=== PATIENT | male | born 1990 | race Caucasian/White ===

== ENCOUNTER 2016-09-28 19:27 | Emergency (ER) | payer OTHER ==
[~2016-09-28] VITALS: Ht 167.6 cm; Wt 70.3 kg
[2016-09-28] MEDS ORDERED: IBUP-1114 PO (19:36)
[2016-09-28] MEDS ORDERED: ZYRT10CA PO (19:36)
[2016-09-28] MEDS ORDERED: diphenhydrAMINE INJ 50MG/ML VIAL (J1200) IV ONE (20:00)
[2016-09-28] MEDS ORDERED: FAMOTIDINE IV BAG 20 MG in APPROPRIATE DILUENT 1 EA IV ONE (20:00)
[2016-09-28] MEDS ORDERED: methylPREDNISolone INJ 125 MG/2 ML VIAL (J2930) IV ONE (20:00)
[2016-09-28 20:56] VITALS: BP 139/67
[2016-09-28] MEDS ORDERED: PRED20TA PO (20:56)
[2016-09-28] MEDS ORDERED: ZANT300T PO (20:57)
== END 2016-09-28 21:15 | disposition home or self-care (01) ==
LOC: M ED 21:14
DX: R22.0 Localized swelling, mass and lump, head (principal); T78.49XA Other allergy, initial encounter; Z91.018 Allergy to other foods; Z88.8 Allergy status to other drugs, medicaments and biological substances
CPT/HCPCS: 96374; 96375; 99282; J1200; J2930

== ENCOUNTER 2016-10-11 21:19 | Emergency (ER) | payer OTHER ==
[~2016-10-11] VITALS: Ht 167.6 cm; Wt 70.3 kg
[~2016-10-11 21:19] MED LIST: IBUP-1114 PO; PRED20TA PO; ZANT300T PO; ZYRT10CA PO
[2016-10-11] MEDS ORDERED: methylPREDNISolone INJ 125 MG/2 ML VIAL (J2930) IV ONE (22:00)
[2016-10-11] MEDS ORDERED: FAMOTIDINE IV BAG 20 MG in APPROPRIATE DILUENT 1 EA IV ONE (22:00)
[2016-10-11] MEDS ORDERED: NS 1,000 ML IV ONE (22:00)
[2016-10-12] MEDS ORDERED: PRED20TA PO (00:47)
[2016-10-12 01:00] VITALS: BP 125/60
== END 2016-10-12 01:03 | disposition home or self-care (01) ==
LOC: M ED 22:03
DX: R22.0 Localized swelling, mass and lump, head (principal); T39.315A Adverse effect of propionic acid derivatives, initial encounter; Z91.018 Allergy to other foods; Z88.8 Allergy status to other drugs, medicaments and biological substances; Z79.899 Other long term (current) drug therapy
CPT/HCPCS: 96374; 96375; 99282; J2930